=== PATIENT | male | born 1955 | race Caucasian/White ===

== ENCOUNTER → 2017-07-18 08:18 | Outpatient (CLI) | payer OTHER ==
[2012-01-27 13:51] VITALS: BMI 28.3
[2017-07-18 17:25] LABS: CHOL - HDL RATIO 4.1 ratio (2.3-4.9); LDL-HDL RATIO 2.3 ratio (1.5-3.5)
--- NOTE | 2017-07-25 12:15 | EC ---
PATIENT:OMAR PICKETT DATE OF SERVICE: 07/18/17 SEX: M MEDICAL RECORD: [id number] DATE OF : [birth year] LOCATION:[facility] AGE OF PATIENT: 62 ADMISSION DATE: 07/18/17 REFERRING PHYSICIAN: INTERPRETING PHYSICIAN: CLAUDIA GAMA MD ECHOCARDIOGRAM REPORT ECHO CHARGES 4 ECHO COMPLETE CLINICAL DIAGNOSIS: CHEST PAIN ECHOCARDIOGRAPHIC MEASUREMENTS (adult normal given) AC root (d.<3.7cm) 3.5 cm LV Septum d (<1.2 cm> 1.6 cm Valve Excursion 1.7 cm LV Septum (systole) 1.7 cm Left Atria (s.<4.0cm> 3.9 cm LVPW d(<1.2cm) 1.5 cm RV (d.<2.3cm) 4.1 cm LVPW (sytole) 1.7 cm LV diastole(<5.6CM) 4.5 cm MV E-F(>70mm/sec) cm LV systole 3.5 cm LVOT Diameter 1.8 cm MV exc.(>10mm) 1.5 cm Est.ejection fraction (50-75%) % Pericardial Effusion N DOPPLER: LVIT cm/sec A 73.0 cm/sec E 108 cm/sec LA cm/sec RVSP 34 mmHg LVOT 111 cm/sec AOP1/2T m/s Asc. Ao 134 cm/sec RVOT 81 cm/sec RA cm/sec PA 96 cm/sec AV Gradient Peak 7.14 mmHg AV Mean 3.51 mmHg AV Area 2.1 cm MV Gradient Peak 4.16 mmHg MV Mean 1.25 mmHg MV Area cm COMMENTS: Videogame Tester: Erin [employer] Installer: Destiny Deshpande TAPE# PACS DATE OF SERVICE: 07/18/2017 FINDINGS: 1. Left ventricular chamber size is within normal limits. Left ventricular systolic function is normal. Overall ejection fraction estimated at 60%. 2. Left atrium is within normal limits at 3.9 cm. Right atrium and right ventricle chamber sizes are mildly dilated. 3. Valvular structures have normal structure and motion. 4. Doppler interrogation only reveals mild mitral regurgitation, mild tricuspid regurgitation, no other valvular insufficiency or stenosis, pulmonary systolic ECHOCARDIOGRAM REPORT [id number] OMAR PICKETT pressure is normal estimated 34 mmHg. 5. No evidence of pericardial effusion or left ventricular thrombus. TRANSINT:[id number] Voice Confirmation ID: [id number] DOCUMENT ID: [id number] CALUDIA GAMA MD at 1215 CC: [id number] DICTATION DATE: 07/18/17 1057 MOSAIC TILE MAKER: 07/18/17 1220 DEP CLI 07/18/17 [place] [id number] [place] [id number]
== END | disposition home or self-care (01) ==
LOC: D.ECHO 08:18
PROVIDERS: Internal Medicine Cardiovascular Disease
DX: R07.9 Chest pain, unspecified (principal); E78.5 Hyperlipidemia, unspecified; E11.9 Type 2 diabetes mellitus without complications